=== PATIENT | female | born 1995 | race American Indian/Alaskan Native ===

== ENCOUNTER 2021-08-25 05:30 | Inpatient (IN) | payer OTHER, MEDICAID ==
[2021-08-20 09:41] LABS: Hematocrit 30.3 % (30.3-42.9); Hemoglobin 9.6 gm/dl (10.1-14.3); Mean Corpuscular HGB Conc 32 % (30-34); Mean Corpuscular Volume 80 fl (79-97); Platelet Count 279 K/mm3 (140-440); Red Blood Count 3.77 M/mm3 (3.65-5.03); Red Cell Distribution Width 19.1 % (13.2-15.2)
[2021-08-20 10:22] LABS: Blood Urea Nitrogen 7 mg/dL (7-17); Calcium 8.8 mg/dL (8.4-10.2); Hemolysis Index 0
[2021-08-20 10:23] LABS: BUN/Creatinine Ratio 23
--- NOTE | 2021-08-24 18:13 | History and Physical Report ---
History of Present Illness Chief complaint: Repeat delivery with sterilization History of present illness: Past History : 3 Term Births: 2 Premature Births: 0 Living Children: 2 Para: 2 Mult. Births: 0 Prev : 2 Prev. attempt? none Aborta: 0 Elect. Ab: 0 Spont. Ab: 0 Ectopics: 0 # 1 Delivery date: 2014 Weeks Gestation: 40 labor: yes Delivery type: Anesthesia type: epidural Delivery location: [facility] Sex: Female weight: can't remember Comments: CS for "my pelvis was shaped wrong" # 2 Delivery date: 04/19/2020 Weeks Gestation: 38 Delivery type: Anesthesia type: epidural Delivery location: [facility] Sex: Male weight: 6.10 Comments: HTN, PO medications after delivery until 2wks Past Medical History: Reviewed and updated today: Negative Past Medical History Past Surgical History: Reviewed and updated today: 2019 Foot surgery 2005 "removed 6th toe on each foot", cosmetic, denies bone involvement Family History Summary: Mother - Has Family History of Hypertension - Entered On: 05/26/2021 MGF - Has Family History of Hypertension - Entered On: 05/26/2021 MGM - Has Family History Breast Cancer - Entered On: 05/26/2021 General Comments - FH: PGM- lupus Social History: Reviewed history and no changes required: Patient is single Smoking History: Patient has never smoked. Risk Factors: Smoked Tobacco Use: Never smoker Smokeless Tobacco Use: Never Counseled to Quit/Cut Down: yes Passive Smoke Exposure: no HIV High Risk Behavior: no Caffeine Use: 4+ drinks per day Exercise: no Exercise Counseling: yes Seatbelt Use: preg-counselor dormitory % Family History Risk Factors: Family History of GA in 1 Female Relative Age < 65: no Family History of GA in 1 Male Relative Age < 55: no No Dietary Counseling Reason: pn yes Alcohol Use: no Drug Use: no Past Medical History Anesthesia Complications: negative Anemia: negative Autoimmune Disorder: negative Bleeding Disorder: negative Blood Transfusions: negative Breast Disease: negative Diabetes: negative Heart Disease: negative Hypertension: positive Hepatitis/Liver Disease: negative Kidney Disease/UTI: negative Neurologic/Epilepsy/Migraines: negative Phlebitis/Varicosities: negative Psychiatric: negative Pulmonary Disease/Asthma: negative Thyroid Disease: negative Surgery (Non-branch retail executive): 2019 Foot surgery 2005 "removed 6th toe on each foot", cosmetic, denies bone involvement Abnormal PAP: negative ALAN Exposure: negative Infertility: negative Uterine Anomaly: negative Uterine Surgery (not C/S): negative Other Gynecologic Problems: negative Family Hx: PGM- lupus Social Hx: Patient is single Smoking History: Patient has never smoked. Infection History Hx of STD: trich HIV Risk Eval: no Hepatitis B Risk Eval: low risk Personal hx. of genital herpes: no Partner hx. of genital herpes: no Rash, Viral, or Febrile illness since last LMP? no Varicella/Chicken Pox Status: Previous Disease TB Risk: no Genetic History Congenital Heart Defect: Mom: no Dad: no Krista Disease: Mom: no Dad: no Thalassemia Mom: no Dad: no Neural Tube Defect Mom: no Dad: no Down's Syndrome Mom: no Dad: no David-Sachs Mom: no Dad: no Sickle Cell Disease/Trait Mom: no Dad: no Hemophilia Mom: no Dad: no Muscular Dystrophy Mom: no Dad: no Cystic Fibrosis Mom: no Dad: no [place] Chorea Mom: no Dad: no Mental Retardation Mom: no Dad: no Fragile X Mom: no Dad: no Other Genetic/Chromosomal Disorder Mom: no Dad: no Child w/other defect Mom: no Dad: no Enviromental Exposures Enviromental Exposures Reviewed Xray Exposure: no Medication, drug, or alcohol use since LMP: no Chemical/Other Exposure: no Exposure to Cat Liter: no Hx of Parvovirus (Fifth Disease): no Occupational Exposure to Children: none Active Medications (reviewed today): None Current Allergies (reviewed today): No known allergies Tests: (1) Profile I (20280908) HBsAg Screen Negative Negative *1 RPR Non Reactive Non Reactive *2 Rubella Antibodies, IgG 1.19 index Immune >0.99 *3 Non-immune <0.90 Equivocal 0.90 - 0.99 Immune >0.99 ABO Grouping A *4 Rh Factor Positive *5 Please note: Prior records for this patient's ABO / Rh type are not available for additional verification. Antibody Screen Negative Negative *6 WBC 9.6 x10E3/uL 3.4-10.8 *7 RBC [L] 3.31 x10E6/uL 3.77-5.28 *8 Hemoglobin [L] 8.6 g/dL 11.1-15.9 *9 Hematocrit [L] 27.0 % 34.0-46.6 *10 MCV 82 fL 79-97 *11 MCH [L] 26.0 pg 26.6-33.0 *12 MCHC 31.9 g/dL 31.5-35.7 *13 RDW [H] 15.7 % 11.7-15.4 *14 Platelets 274 x10E3/uL 150-450 *15 Neutrophils 69 % Not Estab. *16 Lymphs 26 % Not Estab. *17 Monocytes 4 % Not Estab. *18 Eos 1 % Not Estab. *19 Basos 0 % Not Estab. *20 ! Immature Cells <No Reported Value> *21 Neutrophils (Absolute) 6.7 x10E3/uL 1.4-7.0 *22 Lymphs (Absolute) 2.5 x10E3/uL 0.7-3.1 *23 Monocytes(Absolute) 0.4 x10E3/uL 0.1-0.9 *24 Eos (Absolute) 0.1 x10E3/uL 0.0-0.4 *25 Baso (Absolute) 0.0 x10E3/uL 0.0-0.2 *26 ! Immature Granulocytes 0 % Not Estab. *27 ! Immature Grans (Abs) 0.0 x10E3/uL 0.0-0.1 *28 ! NRBC <No Reported Value> *29 Hematology Comments: <No Reported Value> *30 Tests: (2) HB Solu + Rflx Fra (712646) Hemoglobin (Hgb) Solubility Negative Negative *31 Tests: (3) HIV Ag/Ab with Reflex ([id number]) HIV Screen 4th Generation wRfx Non Reactive Non Reactive *32 Tests: (4) Gest. Diabetes 1-Hr Screen ([id number]) ! Gestational Diabetes Screen [H] 159 mg/dL 65-139 *33 According to ADA, a glucose threshold of >139 mg/dL after 50-gram load identifies approximately 80% of women with gestational diabetes mellitus, while the sensitivity is further increased to approximately 90% by a threshold of >129 mg/dL. Tests: (5) HCV Antibody reflex to JEANETTE (122196) HCV Ab 0.1 s/co ratio 0.0-0.9 *34 Tests: (6) Interpretation: ([id number]) ! Interpretation: SPRCS *35 Negative Not infected with HCV, unless recent infection is suspected or other evidence exists to indicate HCV infection. Order Note: Clinical Information: SRC:VR SRC:UR Chlamydia by JEANETTE Negative Negative *1 Gonococcus by JEANETTE Negative Negative *2 Trich vag by JEANETTE Negative Negative *3 Tests: (2) Strep Gp B JEANETTE ([id number]) ! Strep Gp B JEANETTE Negative Tests: (1) RPR, Rfx Qn RPR/Confirm TP ([id number]) RPR Non Reactive Non Reactive *1 Tests: (2) HIV Ab/p24 Ag with Reflex ([id number]) HIV Ab/p24 Ag Screen Non Reactive Non Reactive *2 HIV Negative HIV-1/HIV-2 antibodies and HIV-1 p24 antigen were NOT detected. There is no laboratory evidence of HIV infection. Medications and Allergies Allergies Allergy/AdvReac Type Severity Reaction Status Date / Time No Known Allergies Allergy Unverified 08/18/21 15:36 Home Medications Medication Instructions Recorded Confirmed Last Taken Type Ferrous Sulfate [Iron 325 MG] 325 mg PO BID 08/18/21 08/18/21 Unknown History Vit-Fe Fumar-FA [ 1 tab PO QDAY 08/18/21 08/18/21 Unknown History Vitamin] Active Meds: Active Medications Citric Acid/Sodium Citrate (Bicitra Oral Liqd 30ml) 30 ml PO ONCE ONE Stop: 08/25/21 06:31 Famotidine (Famotidine 20 Mg/2 Ml Inj) 20 mg IV ONCE ONE Stop: 08/25/21 06:31 Lactated Ringer's (Lactated Ringers) 1,000 mls @ 2,250 mls/hr IV PREOP NATHAN Stop: 08/26/21 06:27 Oxytocin/Sodium Chloride (Pitocin/Ns 30 Unit/500ml) 30 units in 500 mls @ 0 mls/hr IV TITR NATHAN; Protocol Cefazolin Sodium (Ancef/Sterile Water 2 Gm/20 Ml) 2 gm in 20 mls @ 80 mls/hr IV PREOP NR; Protocol Metoclopramide HCl (Metoclopramide 10 Mg/2 Ml Inj) 10 mg IV ONCE ONE Stop: 08/25/21 06:31 - Vital Signs Vital signs: Vital Signs Temp Pulse Resp BP Pulse Ox 98.3 F 84 20 128/79 99 08/20/21 09:20 08/20/21 09:20 08/20/21 09:20 08/20/21 09:20 08/20/21 09:20 Temp Pulse Resp BP Pulse Ox 98.3 F 84 20 128/79 99 08/20/21 09:20 08/20/21 09:20 08/20/21 09:20 08/20/21 09:20 08/20/21 09:20 Results Result Diagrams: 08/20/21 09:20 08/20/21 09:20 All other labs normal. Assessment and Plan - Patient Problems (1) 39 weeks gestation of Current Visit: No Status: Acute (2) Previous section Current Visit: Yes Status: Acute Plan to address problem: Risk associated with delivery were discussed, including but not limited to, bleeding that may require blood transfusion, infection that may be life threatening, injury to adjacent organs specifically bowel or bladder that may require further surgeries, or major vascular injury. She was also informed that when she has had a delivery she may require repeat deliveries for all subsequent pregnancies. Questions were encouraged and answered, consents were reviewed and signed. Patient voiced understanding and desires to proceed with delivery. She declines sterilization at this, she was informed of significant risk for fatal, life-threatening complications with each subsequent surgery. She voiced understanding and declines sterilization (3) GDM (gestational diabetes mellitus) Current Visit: No Status: Acute (4) IUGR (intrauterine growth restriction) Current Visit: No Status: Acute (5) Body mass index (BMI) greater than 30 in adult Current Visit: No Status: Acute
[2021-08-25] MEDS ORDERED: OXYTOCIN DRIP 30 UNITS/500 ML BAG IV SCH ×2 (06:00→13:08)
[2021-08-25] MEDS ORDERED: LACTATED RINGERS 1,000 ML IV SCH (06:00)
[2021-08-25] MEDS ORDERED: METOCLOPRAMIDE 10 MG/2 ML INJ IV ONE (06:30)
[2021-08-25] MEDS ORDERED: ceFAZolin/Water 2 GM/20 ML 2 GM/20 ML SYRINGE IV NR (06:30)
[2021-08-25] MEDS ORDERED: FAMOTIDINE 20 MG/2 ML INJ IV ONE (06:30)
[2021-08-25] MEDS ORDERED: BICITRA ORAL LIQD 30ML PO ONE (06:30)
--- NOTE | 2021-08-25 06:47 | Anesthesia Day of Surgery ---
Anesthesia Day of Surgery - Day of Surgery Patient Examined: Yes Patient H&P Reviewed: Yes Patient is NPO: Yes
--- NOTE | 2021-08-25 06:48 | Anesthesia Consultation ---
Anesthesia Consult and Med Hx Date of service: 08/25/21 - Airway Anesthetic Teeth Evaluation: Poor ROM Head & Neck: Adequate Mental/Hyoid Distance: Adequate Mallampati Class: Class II Intubation Access Assessment: Probably Good - Pulmonary Exam CTA: Yes - Cardiac Exam Cardiac Exam: RRR - Pre-Operative Health Status ASA Pre-Surgery Classification: ASA3 Proposed Anesthetic Plan: Epidural - Pre-Anesthesia Comment Pre-Anesthesia Comments: csections x2, foot sx. No anesthesia complications - Pulmonary Hx Smoking: No Hx Asthma: No COPD: No Hx Pneumonia: No - Cardiovascular System Hx Hypertension: No - Central Nervous System Hx Seizures: No Hx Back Pain: Yes Hx Psychiatric Problems: No - Gastrointestinal Hx Gastroesophageal Reflux Disease: Yes - Endocrine Hx Renal Disease: No Hx End Stage Renal Disease: No Hx Non-Insulin Dependent Diabetes: Yes (GDM) Hx Hypothyroidism: No Hx Hyperthyroidism: No - Hematic Hx Anemia: Yes Hx Sickle Cell Disease: No - Other Systems Hx Alcohol Use: No Hx Cancer: No Hx Obesity: Yes
[2021-08-25] MEDS ORDERED: ONDANSETRON 4 MG/2 ML INJ ONE (07:26)
[2021-08-25] MEDS ORDERED: SODIUM CHLORIDE 0.9% IRR 1,500 ML BOTTLE IR ONE (10:05)
[2021-08-25] MEDS ORDERED: WATER FOR IRRIG STERILE 1,500 ML BOTTLE IR ONE (10:05)
[2021-08-25] MEDS ORDERED: dexAMETHasone 20 MG/5 ML VIAL ONE (10:21)
[2021-08-25] MEDS ORDERED: BUPIVACAINE/PF (0.25%) 2.5 MG/ML 30 ML VIAL INFILTRATI ONE (10:21)
--- NOTE | 2021-08-25 11:08 | Progress Note ---
Spinal Anesthesia Block - Spinal Anesthesia Block Start Time: :36 Stop Time: :38 Performed by:: EV GLOVER Procedure: Patient IDed, H&P reviewed, all questions and concerns were answered, and consent was signed. Timeout was performed at bedside. Patient in sitting position. Sterile prep and drape was performed. [3] ml of 1% lidocaine skin wheal at L[3]- L 4 x 1 attempt. Needle introducer advanced. 25 gauge spinal needle advanced. Clear, free flowing CSF. negative blood, negative paresthesia. Spinal dose given. All needles removed. Patient tolerated procedure.
--- NOTE | 2021-08-25 11:11 | Progress Note ---
Regional Anesthesia Block - Regional Anesthesia Block Start Time: 10:50 Stop Time: 10:55 Performed By:: EV GLOVER Procedure: Patient consented for TAP block for post surgical pain management. Patient identified, monitors placed, and time out performed. TAP identified bilaterally via ultrasound. Skin prepped bilaterally with [chlorhexidine] and [22g stimuplex] needle advanced to the TAP. [Marcaine 0.25% 30ml/Decadron 5mg] injected under ultrasound guidance on the [left] side. [Marcaine 0.25% 30ml/ Decadron 5mg] injected under ultrasound guidance on the [right] side. Negative aspiration every 5mL, No change in heart rate or rhythm. Patient tolerated the procedure well. No apparent complications seen.
--- NOTE | 2021-08-25 11:32 | Operative Report ---
Operative Report Operative Report: Date of operation: 08/25/2021 Pre-operative diagnosis: 1. Intrauterine at 39 weeks gestational age 2. Previous delivery x2 3. Desires repeat delivery 4. BMI 33.6 kg/m2 Post-operative diagnosis: 1. Intrauterine at 39 weeks gestational age 2. Previous delivery x2 3. Desires repeat delivery 4. BMI 33.6 kg/m2 Procedure name(s): Primary low transverse uterine incision Surgeon: Nara Perez MD Health Safety And Environment Manager: Lety Guerra Anesthesia: Spinal QBL: 710 mL Urine output: 300 mL of clear urine out at the end of the procedure Fluids: 2500 mL Findings: Liveborn male weight 6 Lbs. 3 oz. Apgars of 8 and 9 at one and 5 minutes Indications: [] Procedure: Patient was taking to the operating room. Spinal anesthesia was placed. Patient was then prepped and draped in the usual sterile fashion Timeout was performed. Once an appropriate level of anesthesia was noted, a Pfannenstiel incision was made and extended the fascia which was incised and extended lateral direction. The overlying fascia was sharply dissected away from the underlying rectus muscles in the superior inferior direction. The midline was entered bluntly. Bladder blade was placed. Vesicouterine fold was incised with blunt dissection bladder flap was created. A transverse incision was made in the very thin lower uterine segment and extended superolateral direction with finger fractionation. Clear fluid was noted. was delivered from the cephalic LOT position, with spontaneous cry and excellent tone. Mouth and nose bulb suctioned. Cord was doubly clamped and cut infant was given to the resuscitation team present. Placenta was delivered. The uterus was exteriorized and cleaned of any further placental tissue and products of conception. Uterine incision was approximated using 0 Vicryl in a running interlocking stitch followed by further suture of 0 Vicryl in imbricating fashion. When hemostasis was noted the uterus was allowed back in the pelvic cavity. Pelvis was irrigated with warm normal saline. Once hemostasis was noted the rectus muscles were approximated using 0 Vicryl interrupted simple stitches 3. Once hemostasis was noted the fascia was approximated using 0 Vicryl simple running stitch. The incision was irrigated with warm saline, once hemostasis as noted, the subcuticular adipose tissue was reapproximated using 3-0 Vicryl in a simple running fashion. Skin was approximated using 4-0 Vicryl on a Dayo needle in a subcuticular manner. Counts were correct x3. Patient tolerated the procedure well, she was taken to recovery room in stable condition.
[2021-08-25] MEDS ORDERED: ONDANSETRON 4 MG/2 ML INJ IV PRN (13:08)
[2021-08-25] MEDS ORDERED: SIMETHICONE 80 MG CHEW TAB PO PRN (13:08)
[2021-08-25] MEDS ORDERED: PROMETHAZINE 25 MG RECT SUPP PR PRN (13:08)
[2021-08-25] MEDS ORDERED: MORPHINE 4 MG/1 ML INJ IV PRN (13:08)
[2021-08-25] MEDS ORDERED: MAGNESIUM HYDROXIDE (MOM) ORAL LIQD UDC PO PRN (13:08)
[2021-08-25] MEDS ORDERED: MORPHINE 2 MG/1 ML INJ IV PRN (13:08)
[2021-08-25] MEDS ORDERED: LANOLIN/ZINC/DIMETHICONE (LANSINOH) 7 GM TP PRN (13:08)
[2021-08-25] MEDS ORDERED: WITCH HAZEL/ GLYCERIN PAD TP PRN (13:08)
[2021-08-25] MEDS ORDERED: NALOXONE 0.4 MG/1 ML INJ IV PRN (13:08)
[2021-08-25] MEDS: D5W/LACTATED RINGERS 1,000 ML IV SCH ×2 (14:11→20:18)
[2021-08-25] MEDS: ceFAZolin/NS 1 GM/50 ML 1 GM/50 ML BAG IV SCH ×2 (14:11→23:46)
[2021-08-25] MEDS: KETOROLAC 30 MG/1 ML INJ IV SCH ×2 (14:12→23:47)
[2021-08-25] MEDS ORDERED: ACETAMINOPHEN 325 MG TAB PO SCH (18:00)
[2021-08-25] MEDS: ACETAMINOPHEN 500 MG TAB PO SCH (20:17)
[2021-08-26 00:11] LABS: Hematocrit 26.4 % (30.3-42.9); Hemoglobin 8.5 gm/dl (10.1-14.3)
[2021-08-26] MEDS: ACETAMINOPHEN 500 MG TAB PO SCH ×3 (04:34→16:35)
[2021-08-26] MEDS: KETOROLAC 30 MG/1 ML INJ IV SCH (05:23)
--- NOTE | 2021-08-26 08:27 | Progress Note ---
Assessment and Plan A: 25 y.o. s/p rpt , POD #1. - Patient Problems (1) delivery delivered Current Visit: Yes Status: Acute Plan to address problem: Continue with care. Advance diet as tolerated. Encourage ambulation. Encourage IS use. If pt continues to do well, discharge home on 08/27. Subjective - Subjective Date of service: 08/26/21 Principal diagnosis: rpt , POD #1 Patient reports: appetite normal, voiding normally, pain well controlled, flatus, ambulating normally [place]: doing well Objective - Vital Signs Latest vital signs: Vital Signs Temp Pulse Resp BP BP Pulse Ox Pulse Ox 08/26/21 05:22 98 08/26/21 04:47 98.2 F 66 20 122/64 99 08/26/21 03:35 97 08/26/21 02:00 97 08/26/21 01:20 98.1 F 67 20 117/70 99 08/25/21 23:45 98 08/25/21 21:15 98 08/25/21 20:17 98.4 F 64 20 124/65 96 08/25/21 20:15 98 08/25/21 15:17 98 F 67 20 115/68 100 08/25/21 13:08 100 08/25/21 12:36 97.8 F 70 18 133/78 100 08/25/21 12:00 98.0 F 67 18 119/71 99 08/25/21 11:45 69 16 120/64 99 08/25/21 11:30 73 19 113/63 99 08/25/21 11:15 67 21 121/67 99 08/25/21 11:10 71 16 120/66 99 08/25/21 11:05 76 18 120/66 99 08/25/21 11:01 97.5 F L 79 14 116/67 99 Intake and Output 08/25/21 08/26/21 08/26/21 22:59 06:59 14:59 Intake Total 1644.583 480 Output Total 1900 1350 Balance -255.417 -870 Intake: IV 764.583 D5lr 1,000 ml @ 125 mls/ 764.583 hr IV DIRECT NATHAN Rx#: [id number] Oral 640 360 Intake, Free Water 240 120 Output: Urine 1900 1350 Indwelling Catheter 1900 1050 Void 300 Other: Total, Intake Amount 320 240 Total, Output Amount 400 300 - Exam Breasts: Present: deferred Cardiovascular: Present: Regular rate Lungs: Present: Normal air movement Abdomen: Present: normal appearance, soft Vulva: both: normal Uterus: Present: normal Extremities: Present: normal Incision: Present: dressed (No drainage noted.) - Labs Labs: Abnormal lab results 08/25/21 Range/Units 23:51 Hgb 8.5 L (10.1-14.3) gm/dl Hct 26.4 L (30.3-42.9) %
--- NOTE | 2021-08-26 08:52 | Post Anesthesia Evaluation ---
- Post Anesthesia Evaluation Patient Participated: Yes Airway Patent: Yes Stable Respiratory Function: Yes Nausea/Vomiting: No Temp > 96.8F: Yes Pain Manageable: Yes Adequeate Hydration: Yes Anesthesia Complications: No Block Receding Appropriately: Yes Patient on Ventilator: No
[2021-08-26] MEDS: FERROUS SULFATE 325 MG TAB PO SCH (09:04)
[2021-08-26] MEDS ORDERED: oxyCODONE /ACETAMINOPHEN 5-325MG TAB PO PRN (11:17)
[2021-08-26] MEDS ORDERED: IBUPROFEN 600 MG TAB PO PRN (11:17)
[2021-08-26] MEDS ORDERED: TETANUS,DIPH,PERTUSS(ACELL) VACCINE 0.5 ML SYRINGE IM ONE (11:19)
[2021-08-26] MEDS: IBUPROFEN 800 MG TAB PO PRN ×2 (12:16→22:09)
[2021-08-27] MEDS: ACETAMINOPHEN 500 MG TAB PO PRN ×2 (02:34→09:29)
--- NOTE | 2021-08-27 08:36 | Discharge Summary ---
Providers - Providers Date of Admission: 08/25/21 05:30 Date of discharge: 08/27/21 Attending physician: ELADIO GARDINER 08/25/21 13:08 Consult to Pencil Inspector [CONS] Routine Reason For Exam: Primary care physician: COMMUNICATIONS TECHNICIAN Hospitalization Reason for admission: section Delivery: Procedure: section Incision: normal, dry, intact, other (steri-strips) Other procedures: none complications: none Discharge diagnosis: IUP at term delivered baby: male Pertinent studies: post op H&H 8.5/26.4, asymptomatic anemia d/t acute blood loss Hospital course: uncomplicated repeat c/s and postop course Condition at discharge: Good Disposition: 01 HOME / SELF CARE / HOMELESS - Discharge Diagnoses (1) delivery delivered Status: Acute Plan - Discharge Medications Prescriptions: Docusate Sodium [Colace] 100 mg PO BID PRN #30 capsule PRN Reason: Constipation Lidocain2.5%/Prilocai2.5% [Emla] 5 gm TP ONCE #1 tube Ferrous Sulfate [Feosol 325 MG tab] 325 mg PO BID #90 tablet Ibuprofen [Motrin 800 MG tab] 800 mg PO TID PRN #30 tablet PRN Reason: Pain oxyCODONE /ACETAMINOPHEN [Percocet 5/325 mg] 1 - 2 tab PO Q6HR PRN #10 tablet PRN Reason: Pain - Provider Discharge Summary Activity: no sex for 6 weeks, no heavy lifting 4 weeks, no strenuous exercise Diet: routine Instructions: routine Additional instructions: [] Smoking cessation referral if applicable(refer to patient education folder for contact #) [] Refer to [facility] Booklet Call your doctor immediately for: * Fever > 100.5 * Heavy vaginal bleeding ( >1 pad per hour) * Severe persistent headache * Shortness of breath * Reddened, hot, painful area to leg or breast * Drainage or odor from incision. * Keep incision clean and dry at all times and follow doctor's instructions regarding bathing/showering. - Follow up plan Follow up: PRIMARY CARE, [Primary Care Provider] - 7 Days ELADIO GARDINER MD [Staff Physician] - 7 Days (Congratulations! Make an appt in 1 week for Incision check and for circumsicion of baby boy. Please bring lidociane cream to your appt. Call the office if you have any questions or concerns. [phone]) Forms: [facility] Discharge Summary
[2021-08-27] MEDS: FERROUS SULFATE 325 MG TAB PO SCH (09:29)
[2021-08-27 12:16] VITALS: BP 127/83
== END 2021-08-27 12:50 | disposition home or self-care (01) | DRG 787 ==
LOC: APU 05:30 → OB 12:50
PROVIDERS: ADMIT Obstetrics & Gynecology; ATTEND Obstetrics & Gynecology
PROC: 10D00Z1 Extraction of Products of Conception, Low, Open Approach (ICD-10-PCS; principal; 2021-08-25)
PROC: 3E0T3BZ Introduction of Anesthetic Agent into Peripheral Nerves and Plexi, Percutaneous Approach (ICD-10-PCS; 2021-08-25)
PROC: 3E0234Z Introduction of Serum, Toxoid and Vaccine into Muscle, Percutaneous Approach (ICD-10-PCS; 2021-08-26)
DX: O36.5930 Maternal care for other known or suspected poor fetal growth, third trimester, not applicable or unspecified (principal); D62 Acute posthemorrhagic anemia; O34.211 Maternal care for low transverse scar from previous cesarean delivery; O24.429 Gestational diabetes mellitus in childbirth, unspecified control; Z3A.39 39 weeks gestation of pregnancy; Z37.0 Single live birth; Z20.822 Contact with and (suspected) exposure to COVID-19; Z23 Encounter for immunization; O99.62 Diseases of the digestive system complicating childbirth; K92.9 Disease of digestive system, unspecified; O90.81 Anemia of the puerperium
CPT/HCPCS: 36415; 80048; 82962; 85014; 85018; 85027; 86592; 86850; 86900; 86901; 88307; 99211; G0378; J3490; J7060; J7121; G0463; J0690; J1100; J1885; J2405; J2765; U0003